=== PATIENT | female | born 1995 | race Caucasian/White ===

== ENCOUNTER → 2016-05-10 | Outpatient (CLI) | payer OTHER ==
[~2016-05-10] VITALS: Ht 162.6 cm; Wt 52.6 kg
[~2016-05-10] MED LIST: TESTOSTERONE CYPIONATE 200 MG/ML IM SCH
[2016-05-10 17:46] VITALS: BP 116/73
== END ==
LOC: EUOP 16:55
PROVIDERS: ATTEND Internal Medicine Endocrinology, Diabetes & Metabolism
DX: F64.0 Transsexualism (principal)
CPT/HCPCS: 96372; J1071

== ENCOUNTER 2016-05-24 16:47 | Outpatient (RCR) | payer OTHER ==
[~2016-05-24] VITALS: Ht 162.6 cm; Wt 52.6 kg
[~2016-05-24 16:47] MED LIST changes: +AMOX1TAB12 PO; +CYCL10TA45 PO; +KETO10TA PO; +NAPR500T3 PO; +ONDAN4ODT PO; +TEST75GE7 TD
[2016-06-20] MEDS ORDERED: TESTOSTERONE CYPIONATE 200 MG/ML IM SCH (16:45)
[2016-06-20 17:38] VITALS: BP 119/77
== END 2016-08-22 | disposition home or self-care (01) ==
LOC: EUOP 06-20 16:28
PROVIDERS: ATTEND Internal Medicine
DX: F64.0 Transsexualism (principal)
CPT/HCPCS: 96372; J1071